=== PATIENT | female | born 1970 | race Caucasian/White ===

== ENCOUNTER 2018-02-05 18:11 | Emergency (ER) | payer OTHER ==
[~2018-02-05] VITALS: Ht 162.6 cm; Wt 85.2 kg
[2018-02-05 18:40] LABS: HEMOGLOBIN 14.4 G/DL (11.9-15.5); MCH 31.2 PG (29.0-34.0); MCHC 34.3 G/DL (30.0-36.0); MCV 91.1 FL (83-99); PLATELET COUNT 401 K/uL (156-360); RBC DIS.WIDTH-CV 13.2 % (11.8-14.6); RBC DIS.WIDTH-SD 43.8 % (39-53); RED BLOOD COUNT 4.61 M/uL (3.80-5.20); WHITE BLOOD COUNT 16.3 K/uL (4.1-10.2)
[2018-02-05 19:01] LABS: ALBUMIN 4.5 g/dL (3.2-4.8); CHLORIDE 106 mEq/L (99-109); POTASSIUM 3.9 mEq/L (3.7-5.4); SODIUM 142 mEq/L (136-147)
[2018-02-05 19:05] LABS: TOTAL BILIRUBIN 0.7 mg/dL (0.0-1.0)
[2018-02-05 19:07] LABS: ALKALINE PHOSPHATASE 86 IU/L (3-129); CREATININE 0.9 mg/dL (0.6-1.3); GFR ESTIMATE (CALCULATED) > 59 mL/min/
[2018-02-05 19:08] LABS: AST (GOT) 18 IU/L (2-34); UREA NITROGEN (BUN) 14 mg/dL (9-23)
[2018-02-05 19:10] LABS: ALT (GPT) 26 IU/L (3-49)
[2018-02-05 19:13] LABS: GLUCOSE 139 mg/dL (70-99)
[2018-02-05 19:16] LABS: QUANTITATIVE HCG < 4.0 MIU/ML
[2018-02-05] MEDS ORDERED: FLOMAX0.4 MG PO (21:05)
[2018-02-05] MEDS ORDERED: ZOFRAN ODT4 MG PO (21:05)
[2018-02-05] MEDS ORDERED: NAPROSYN500 MG PO (21:05)
[2018-02-05] MEDS ORDERED: LORTAB 5-325 M1 EACH PO (21:05)
[2018-02-05 21:10] LABS: APPEARANCE SL.HAZY ((CLEAR)); BILIRUBIN NEGATIVE; BLOOD NEGATIVE; COLOR YELLOW ((YELLOW)); GLUCOSE (STRIP) NEGATIVE; KETONES NEGATIVE; LEUKOCYTES TRACE; NITRITE NEGATIVE; PROTEIN (STRIP) NEGATIVE; SPECIFIC GRAVITY 1.018 (1.000-1.030); UROBILINOGEN 0.2 MG/DL (0.2-1.0)
[2018-02-05 21:32] LABS: BACTERIA RARE /HPF; EPITHELIAL CELLS 1+ /HPF; MUCUS TRACE /LPF; RED BLOOD CELLS 0-5 /HPF (0-5); UCUL ADDED? YES
[2018-02-05] MEDS ORDERED: KEFLEX500 MG PO (21:34)
[2018-02-05 21:45] VITALS: BP 143/88
== END 2018-02-05 21:50 | disposition home or self-care (01) ==
LOC: EME 18:11
DX: N20.0 Calculus of kidney (principal); N39.0 Urinary tract infection, site not specified; R11.2 Nausea with vomiting, unspecified; Z87.891 Personal history of nicotine dependence; Z90.49 Acquired absence of other specified parts of digestive tract; Z90.710 Acquired absence of both cervix and uterus
CPT/HCPCS: 74176; 80053; 81003; 84702; 85027; 87086; 99281; 99284; J1885